=== PATIENT | female | born 1935 | race Caucasian/White ===

== ENCOUNTER 2016-09-20 15:09 | Emergency (ER) | payer OTHER ==
[~2016-09-20] VITALS: Wt 53.5 kg
[2016-09-20] MEDS ORDERED: CEPH-443 PO (15:25)
--- NOTE | 2016-09-20 15:35 | ERD ---
ER Documentation Chief Complaint Date/Time DATE: 09/20/16 TIME: 15:29 Chief Complaint RIGHT EDWARDS INJURY TODAY, NO BLEEDING HPI 81-year-old female brought in by her doctor complaining of abrasion on her right edwards 3 days ago. The injury occurred when she accidentally walked into a table leg. She did not fall or sustain any other injuries. She is able to ambulate without difficulty. The daughter states the patient has history of diabetes. Last time when she had a similar injury, her wound was infected. She is concerned about possible infection. The daughter also wants to have patient referred to a loan servicing specialist. Denies fever or chills. ROS All systems reviewed and are negative except as per history of present illness. Medications Home Meds Active Scripts Cephalexin* (Keflex*) 500 Mg Capsule, 500 MG PO QID for 5 Days, CAP Prov:BRIGITTE SHIRLEY Kyra. FOOD CRITIC 09/20/16 PMhx/Soc History of diabetes and hypertension Physical Exam Vitals Vital Signs Date Time Temp Pulse Resp B/P Pulse Ox O2 Delivery O2 Flow Rate FiO2 09/20/16 15:12 98.5 85 17 166/74 98 Physical Exam General: Well-developed, well-nourished, conscious and coherent, in no distress Skin: Warm and dry without rash, good texture and turgor. Small, 0.5 cm abrasion noted on the right edwards with 1.5 cm area of erythema surrounding the abrasion. No induration. Nontender Head: Normocephalic without evidence of trauma Eyes: Sclera and conjunctivae normal; pupils equal, round, and reactive to light; extraocular movements are intact Neck: Supple without meningismus or adenopathy. Carotids are equal. Trachea midline. No bruits or JVD Chest: Normal AP diameter. Good expansion without retractions. Nontender. Lungs are clear to auscultate bilaterally with good tidal volume Heart: Regular rate and rhythm. No murmur, rub, or gallops heard Extremities: Full range of motion. Good strength bilaterally. No clubbing, cyanosis, or edema. Peripheral pulses are intact. Sensation intact Neuro: Alert and oriented 4, GCS 15. Cranial nerves grossly intact. Motor and sensory exams nonfocal. Moves all extremities. Speech clear. Gait normal Procedures/MDM Well-appearing 81-year-old female with history of diabetes presents the ED with abrasion of her left lower leg. There is an area of erythema surrounding the abrasion site, concern for wound infection. No sign of cellulitis, necrotizing fasciitis, or osteomyelitis. Patient appears well, stable for discharge and outpatient management. [facility] provided for the patient. Medical decision making shared with patient and family. Education provided to patient and family. Patient and family expressed understanding of the plan. Medications on discharge: Keflex. Follow-up: Primary care provider in 2-3 days or return to ED if worse. Departure Diagnosis: Primary Impression: Skin abrasion Condition: Stable Patient Instructions: Abrasion Referrals: [facility] Usted se ko hecho un examen mdico de control que le indica que no est en brendan condicin que requiera tratamiento urgente en el Departamento de Emergencia. Un estudio ms profundo y el tratamiento de szymanski condicin pueden esperar sin ningn riesgo hasta que usted sea atendida/o en el consultorio de szymanski mdico o brendan cl taylor. Es responsabilidad suya arreglar brendan zora para el seguimiento del amy. MANEJO DE CONDICIONES NO URGENTES EN EL FUTURO 1) Si usted tiene un mdico de atencin primaria: Usted debera llamar a szymanski mdico de atencin primaria antes de venir al departamento de emergencia. Despus de las horas de consultorio, szymanski doctor o szymanski asociado/a est disponible por telfono. El mdico o enfermero de kenji en el servicio telefnico puede asesorarle por heath medio para atender el problema, o amy contrario se puede programar brendan zora. 2) Si usted no tiene un mdico de atencin primaria: Llame al mdico o clnica de referencia que aparece abajo dillon las horas de consultorio para hacer brendan zora para que le vean. CLINICAS: [facility] [phone] [id number] [facility] [id number] [facility] [phone] [facility] [id number] [facility] [phone] [address] [facility]. [phone] [address] Additional Instructions: Follow up with [facility] care at [facility]. Llame al doctor MAANA y caitlyn brendan ZORA PARA DENTRO DE 2-3 TOVAR.Dgale a la secretaria que nosotros le instruimos hacer esta zora.Avise o llame si szymanski condicin se empeora antes de la zora. Regresa aqui si peor o no mejor. BRIGITTE SHIRLEY NP Sep 20, 2016 15:35
== END 2016-09-20 15:26 | disposition home or self-care (01) ==
LOC: FTE 15:09 → E/R 15:26
DX: S80.811A Abrasion, right lower leg, initial encounter (principal); E11.9 Type 2 diabetes mellitus without complications; W22.8XXA Striking against or struck by other objects, initial encounter; Y92.9 Unspecified place or not applicable
CPT/HCPCS: 99283